=== PATIENT | male | born 1995 | race Hispanic/Latino ===

== ENCOUNTER 2018-01-26 01:25 | Emergency (ER) | payer OTHER ==
[2018-01-26] MEDS ORDERED: KETOROLAC TROMETHAMINE 60 MG/2 ML VIAL ONE (02:23)
== END 2018-01-26 02:50 | disposition home or self-care (01) ==
LOC: EDH 01:25
DX: S53.491A Other sprain of right elbow, initial encounter (principal); V49.49XA Driver injured in collision with other motor vehicles in traffic accident, initial encounter; Y93.89 Activity, other specified; Y92.89 Other specified places as the place of occurrence of the external cause; Y99.8 Other external cause status
CPT/HCPCS: 73070; 96372; 99284; J1885

== ENCOUNTER 2018-12-28 00:28 | Emergency (ER) | payer SELFPAY ==
[2018-12-28] MEDS ORDERED: CLINDAMYCIN 900 MG/D5% WATER 50 ML IV ONE (01:34)
[2018-12-28] MEDS ORDERED: DEXAMETHASONE SOD PHOSPHATE 10MG/ML 1ML VIAL ONE (01:34)
[2018-12-28] MEDS ORDERED: MAGNESIUM HYDROXIDE 30 ML/UDCUP ONE (01:34)
[2018-12-28] MEDS ORDERED: LIDOCAINE HCL 2% VISCOUS 15 ML UDCUP ONE (01:34)
[2018-12-28] MEDS ORDERED: KETOROLAC TROMETHAMINE 30MG/ML ONE (01:35)
== END 2018-12-28 02:41 | disposition home or self-care (01) ==
LOC: EDH 00:28
DX: J03.90 Acute tonsillitis, unspecified (principal)
CPT/HCPCS: 96365; 96375; 99283; J1100; J1885; J3490

== ENCOUNTER 2019-01-20 10:30 | Emergency (ER) | payer OTHER ==
[2019-01-20] MEDS ORDERED: IBUPROFEN 600 MG TABLET ONE (10:52)
== END 2019-01-20 11:10 | disposition home or self-care (01) ==
LOC: EDH 10:30
DX: J02.0 Streptococcal pharyngitis (principal)